=== PATIENT | female | born 1980 | race Caucasian/White ===

== ENCOUNTER 2017-02-06 15:53 | Emergency (ER) | payer MEDICAID ==
[~2017-02-06] VITALS: Ht 160 cm; Wt 58.1 kg
--- NOTE | 2017-02-06 16:15 | NUR ---
1st contact with patient, AOX4, c/o right ear pains ,possibe foreign body, "I think it's a piece of cotton." per patient. Patient is also complaining og "long wait" in our ER and wants to speak with the computer operations supervisor. Bob computer operations supervisor was notified.
--- NOTE | 2017-02-06 17:47 | NUR ---
Patient is seen talking on her cellphone using her right ear, NAD, pending disposition
--- NOTE | 2017-02-06 17:55 | NUR ---
Patient discharged to home in stable conditon. Written and verbal after care instructions given to patient. Patient verbalizes understanding of instructions.
== END 2017-02-06 17:56 | disposition home or self-care (01) ==
LOC: ER 15:54
DX: S00.459A Superficial foreign body of unspecified ear, initial encounter (principal); X58.XXXA Exposure to other specified factors, initial encounter; Y93.89 Activity, other specified; Y92.89 Other specified places as the place of occurrence of the external cause; Y99.8 Other external cause status
CPT/HCPCS: 69200; 99283; A4663

== ENCOUNTER 2021-05-11 20:29 | Emergency (ER) | payer MEDICAID ==
[~2021-05-11] VITALS: Ht 160 cm; Wt 58.1 kg
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
--- NOTE | 2021-05-11 20:35 | NUR ---
DR. HOWELL AT BEDSIDE, MSE IN PROGRESS.
[2021-05-11] MEDS ORDERED: KETOROLAC TROMETHAMINE 15 MG INJ IM ONE (20:45)
[2021-05-11] MEDS ORDERED: KETOROLAC TROMETHAMINE 15 MG INJ ONE (21:00)
[2021-05-11 21:15] LABS: *BILIRUBIN,URIN NEGATIVE (NEGATIVE); *CLARITY,URINE CLEAR (CLEAR); *COLOR,URINE YELLOW (YELLOW); *KETONES,URINE TRACE (NEGATIVE); *UROBILINOGEN,URINE 0.2 E.U./dl (NORMAL); LEUKOCYTE ESTERASE ,URINE NEGATIVE (NEGATIVE); NITRITE, URINE NEGATIVE (NEGATIVE); UGLUCOSE NEGATIVE (NEGATIVE)
[2021-05-11] MEDS ORDERED: IBUP-1955 PO (21:19)
[2021-05-11 21:36] LABS: *BLOOD, URINE TRACE (NEGATIVE)
[2021-05-11 21:58] LABS: BACTERIA,URINE MODERATE /HPF (NONE SEEN); SQUAMOUS EPITHELIAL CELL,UR MODERATE /HPF (NONE SEEN)
--- NOTE | 2021-05-11 22:06 | NUR ---
PT HAS STRONGLY REFUSED FOR CT EXAMS DESPITE EXPLAINING RISK AND BENEFITS, VERBALIZED UNDERSTANDING. DR. FAIRCHILD MADE AWARE.
--- NOTE | 2021-05-11 22:11 | NUR ---
Patient discharged to home in stable condition, patient picked up by friend. Written and verbal after care instructions given. Patient verbalizes understanding of instructions. Stressed follow up or return to ER for worsening s/s. Pt alert and oriented, no change in LOC. Denies pain at this time, no distress noted.
[2021-05-11 22:12] LABS: *URINE HCG, QUAL NEGATIVE (NEGATIVE)
[2021-05-11 22:13] VITALS: BP 116/80
== END 2021-05-11 22:08 | disposition home or self-care (01) ==
LOC: ER 20:29
DX: M54.2 Cervicalgia (principal); M54.50 Low back pain, unspecified; M25.512 Pain in left shoulder
CPT/HCPCS: 73030; 81001; 84703; 87086; 96372; 99284; J1885; A4663